=== PATIENT | female | born 1935 | race Caucasian/White ===

== ENCOUNTER → 2018-12-25 10:06 | Outpatient (CLI) | payer MEDICARE, BC | END | disposition home or self-care (01) | LOC: D.US 10:06 | PROVIDERS: ATTEND Internal Medicine Gastroenterology | DX: R10.9 Unspecified abdominal pain (principal) ==

== ENCOUNTER → 2019-01-15 12:49 | Outpatient (CLI) | payer MEDICARE, BC | END | disposition home or self-care (01) | LOC: D.CT 12:49 | DX: R93.89 Abnormal findings on diagnostic imaging of other specified body structures (principal); Q63.1 Lobulated, fused and horseshoe kidney ==

== ENCOUNTER 2019-01-20 09:40 | Day surgery (SDC) | payer MEDICARE, BC ==
[~2019-01-20] VITALS: Ht 167.6 cm; Wt 64.9 kg
[~2019-01-20 09:40] MED LIST: ESTRACE 0.5 MG0.5 MG PO; KLONOPIN1 MG PO; LISINOPRIL20 MG PO; OMEPRAZOLE20 M1 PO; ULTRAM50 MG PO
[2019-01-20 10:14] LABS: ANION GAP 9.2 mmol/L (8-16); CALCIUM 8.8 mg/dL (8.5-10.1); CARBON DIOXIDE 30.5 mmol/L (21.0-32.0); POTASSIUM - SERUM 4.7 mmol/L (3.5-5.1)
[2019-01-20 11:06] LABS: BASOPHILS 0.6 % (0-2); EOSINOPHILS 5.9 % (0-7); HEMATOCRIT 40.1 % (36.0-48.0); HEMOGLOBIN 13.2 g/dL (12-16); IMMATURE GRANULOCYTES 0.2 % (0-5); LYMPHOCYTES 33.1 % (15-50); MCH 31.4 pg (26.0-34.0); MCHC 32.9 g/dL (31.0-37.0); MCV 95.5 fL (80.0-100.0); MEAN PLATELET VOLUME 9.7 fL (7.4-10.4); NEUTROPHILS 53.2 % (40-80); PLATELET COUNT 346 10x3/uL (130-400); RDW 13.3 % (11.5-14.5); WBC 6.5 10x3/uL (4.8-10.8)
[2019-01-20 12:10] VITALS: BP 134/65; Ht 167.6 cm; Wt 64.9 kg
[2019-01-20] MEDS ORDERED: HYDROCODON-ACE1 EAC7 PO (13:51)
--- NOTE | 2019-01-23 10:09 | OP ---
PATIENT NAME: ABENA VALENZUELA MEDICAL RECORD: [id number] :33 LOCATION:D.OPS ADMISSION DATE: SURGEON: SEB CARRANZA MD DATE OF OPERATION: 01/20/2019 PREOPERATIVE DIAGNOSES: 1. Gallstones. 2. Hypertension. POSTOPERATIVE DIAGNOSES: 1. Gallstones. 2. Hypertension. PROCEDURE: Laparoscopic cholecystectomy. SURGEON: Seb Carranza MD GUN FITTER: Andrei Mendez. REPORT OF PROCEDURE: The patient's abdomen was prepped and draped in sterile fashion. A cutdown was made on the superior aspect of the umbilicus, 0 Vicryls were placed in the fascia bilaterally and the fascia was incised with 15-blade. I then bluntly entered the peritoneal cavity and placed a 12-mm Raj port. Under direct visualization, a 5 mm trocar was placed in the epigastrium and 2 more 5-mm trocars were placed in the right subcostal region and the gallbladder was grasped and elevated. The cystic artery and cystic duct were dissected free and these were clipped proximally and distally and ligated in standard fashion. The gallbladder was then taken off the liver bed using electrocautery and placed into the right upper quadrant. Any bleeding from the liver bed was then treated with electrocautery. We irrigated out the right upper quadrant and assured there was no sign of any bleeding or bile leakage. At this point, the gallbladder was placed into an Endo Catch bag. The ports and insufflation were then removed and the gallbladder was taken out through the umbilicus. The umbilical fascia was closed with interrupted 0 Vicryls times 3. The wounds were then irrigated out with normal saline, infused with 10 mL of 0.25% Marcaine with epinephrine. The skin incisions were all closed with subcutaneous 5-0 Monocryl and dressed appropriately. COMPLICATIONS: None. CONDITION: Stable. ANESTHESIA: General endotracheal and local. BLOOD LOSS: Minimal. TRANSINT:[id number] Voice Confirmation ID: [id number] DOCUMENT ID: [id number] OPERATIVE REPORT [id number] ABENA VALENZUELA CHRISTIAN MD at 1009 CC: [id number] DICTATION DATE: 01/20/19 1351 MANUFACTURING ENGINEER: 01/20/19 1506 [facility] 01/20/[address] [facility] [address] [place] [address]
== END 2019-01-20 16:30 | disposition home or self-care (01) ==
LOC: D.OPS 09:40 → D.PAN 12:15 → D.OPS 12:15
PROVIDERS: ATTEND Surgery
DX: K80.80 Other cholelithiasis without obstruction (principal); I10 Essential (primary) hypertension

== ENCOUNTER → 2019-05-13 09:26 | Outpatient (CLI) | payer MEDICARE, BC ==
[2019-01-20 12:10] VITALS: BMI 23.1
[~2019-05-13 09:26] MED LIST changes: +HYDROCODON-ACE1 EAC7 PO
== END | disposition home or self-care (01) ==
LOC: D.US 09:26
PROVIDERS: ATTEND Student in an Organized Health Care Education/Training Program
DX: M79.605 Pain in left leg (principal)

== ENCOUNTER → 2019-08-24 13:21 | Outpatient (CLI) | payer MEDICARE ==
[2019-01-20 12:10] VITALS: BMI 23.1
== END | disposition home or self-care (01) ==
LOC: D.CT 13:21
PROVIDERS: ATTEND Internal Medicine Gastroenterology
DX: K62.89 Other specified diseases of anus and rectum (principal); R10.30 Lower abdominal pain, unspecified

== ENCOUNTER → 2019-09-15 09:12 | Outpatient (CLI) | payer MEDICARE ==
[2019-01-20 12:10] VITALS: BMI 23.1
[2019-09-15 10:11] LABS: HELICOBACTER PYLORI IGG NEGATIVE (NEGATIVE)
== END | disposition home or self-care (01) ==
LOC: D.RAD 09:12 → D.LAB 10-12 08:45 → D.RAD 10-12 09:00
PROVIDERS: ATTEND Internal Medicine Gastroenterology
DX: R93.89 Abnormal findings on diagnostic imaging of other specified body structures (principal)